=== PATIENT | female | born 1950 | race Caucasian/White ===

== ENCOUNTER → 2016-10-12 | Outpatient (CLI) | payer MEDICARE, MEDICAID ==
[~2016-10-12] MED LIST: B COMPLEX1 TA2 PO; CARDIZEM CD240 MG PO; CO Q-1050 MG PO; FISH OIL1000 MG PO; LORAZEPAM2 MG PO; MELOXICAM15 MG PO; MULTI VITAMINS1 TAB PO; NASONEX0.05 MG/AC NAS; OMEPRAZOLE20 M2 PO; PRAVACHOL80 MG PO; PREDNISONE50 MG PO; PREMARIN0.625 MG PO; REGLAN5 MG PO; SYNTHROID0.05 MG PO; VOLTAREN GEL1% T
[2016-10-12 12:40] LABS: ALBUMIN 3.5 gm/dl (3.1-4.5); PHOSPHOROUS 3.4 mg/dL (2.5-4.9); POTASSIUM 3.9 mmol/L (3.5-5.1)
[2016-10-12 13:37] LABS: FERRITIN 55.4 ng/mL (10.0-291.0); FOLIC ACID 6.54 ng/mL (>5.38)
== END | disposition home or self-care (01) ==
LOC: LAB 11:57
PROVIDERS: Internal Medicine
DX: N18.2 Chronic kidney disease, stage 2 (mild) (principal); D50.9 Iron deficiency anemia, unspecified

== ENCOUNTER → 2016-10-23 | Outpatient (CLI) | payer MEDICARE, MEDICAID | END | disposition home or self-care (01) | LOC: MAMMO 03:20 | DX: Z12.31 Encounter for screening mammogram for malignant neoplasm of breast (principal) ==

== ENCOUNTER → 2017-01-17 | Outpatient (CLI) | payer MEDICARE, MEDICAID | END | disposition home or self-care (01) | LOC: RAD 01:51 | DX: Z13.820 Encounter for screening for osteoporosis (principal); M85.88 Other specified disorders of bone density and structure, other site; N95.9 Unspecified menopausal and perimenopausal disorder ==

== ENCOUNTER → 2017-08-01 | Outpatient (CLI) | payer MEDICARE, MEDICAID | END | disposition home or self-care (01) | LOC: US 01:56 | DX: K76.0 Fatty (change of) liver, not elsewhere classified (principal); Z90.710 Acquired absence of both cervix and uterus ==

== ENCOUNTER → 2017-08-21 | Day surgery (SDC) | payer MEDICARE, MEDICAID ==
[~2017-08-21] VITALS: Ht 162.5 cm; Wt 81.6 kg
[~2017-08-21] MED LIST changes: +FOSAMAX70 M1 PO; +SYNTHROID,LEVO75 MCG PO; -SYNTHROID0.05 MG PO
--- NOTE | ~2017-08-21 | O ---
[place], [place] OPERATIVE NOTE NAME: NARINDER RAMOS UNIT #: [id number] ROOM: DOCTOR: FABI TANNER MD BIRTHDATE: [birth year] DOS: 08/21/2017 GASTROENDOSCOPIC REPORT INDICATIONS: A 67-year-old patient, who has presented with chief complaint of epigastric distress, persistent dyspepsia, undergoing investigation. PAST MEDICAL HISTORY: Associated with hyperlipidemia, hypertension, hypothyroidism, osteoporosis, on alendronate. PAST SURGICAL HISTORY: Hysterectomy, bladder and rectal surgery. ALLERGIES: ERYTHROMYCIN AND TERBINAFINE. FAMILY HISTORY: Noncontributory. SOCIAL HISTORY: Nonsmoker, nonalcohol consumer. The patient has been on Meloxicam daily. PROCEDURE: Today's procedure part of investigation is panendoscopy plus biopsy. PREMEDICATION: Versed and Diprivan. SCOPE: Olympus forward-viewing gastroscope Q10 video. REPORT: After putting the patient in left lateral position and application of lubricant to the scope, the scope was introduced; thereafter, under direct visualization, I advanced through the length of esophagus without difficulty. Distal esophageal ulcers, which are linear and ascending approximately 5 cm above the esophagogastric junction was photographed and hiatal hernia, which is about 3.5 cm was noticed. Gastric pouch was entered. Gastritis seen. Antral biopsy obtained. Duodenal bulb, second and third part within normal limits. The patient extubated, tolerated procedure well. IMPRESSION: Distal esophageal ulcer secondary to reflux, hiatal hernia, gastritis secondary to Meloxicam, all above. PLAN AND DISCUSSION: We are going to increase her Protonix to 40 mg daily and Gaviscon Extra Strength tablet 1 at bedtime, antireflux measures with elevation of the head of the bed 6-inch all time. Abstinence from solid food ingestion 5 hours prior to retiring and Reglan 5 mg a.c. dinner to enhance gastric emptying time. Follow up routinely with you in office, p.r.n. visit with us in [facility]. Thank you very much indeed for your kind referral. [place], [place] OPERATIVE NOTE NAME: NARINDER RAMOS UNIT #: [id number] ROOM: DOCTOR: JACOB TANNER MD BIRTHDATE: [birth year] FABI TANNER MD CM:BOOM:OPERATIVE NOTE 11 32 PAIGE TANNER MD 08/21/17 1233 interface
[2017-08-21 10:44] VITALS: BP 124/70
[2017-08-21 12:07] VITALS: BP 137/59
[2017-08-21 12:19] VITALS: BP 127/61
[2017-08-21 12:35] VITALS: BP 132/73
== END ==
LOC: SDC 08-16 12:30
DX: K29.50 Unspecified chronic gastritis without bleeding (principal); E78.5 Hyperlipidemia, unspecified; I10 Essential (primary) hypertension; E03.9 Hypothyroidism, unspecified; M81.0 Age-related osteoporosis without current pathological fracture; Z90.710 Acquired absence of both cervix and uterus; Z88.1 Allergy status to other antibiotic agents; K22.10 Ulcer of esophagus without bleeding; K21.9 Gastro-esophageal reflux disease without esophagitis; K44.9 Diaphragmatic hernia without obstruction or gangrene

== ENCOUNTER → 2017-10-31 | Outpatient (CLI) | payer MEDICARE, MEDICAID | END | disposition home or self-care (01) | LOC: MAMMO 01:25 | DX: Z12.31 Encounter for screening mammogram for malignant neoplasm of breast (principal) ==

== ENCOUNTER → 2018-01-30 | Outpatient (CLI) | payer MEDICARE, MEDICAID ==
[2018-01-30 15:25] LABS: ALBUMIN 3.7 gm/dl (3.1-4.5); CREATININE 1.2 mg/dL (0.55-1.02); PHOSPHOROUS 3.2 mg/dL (2.5-4.9); POTASSIUM 4.4 mmol/L (3.5-5.1)
== END | disposition home or self-care (01) ==
LOC: LAB 14:25
PROVIDERS: Internal Medicine
DX: N18.2 Chronic kidney disease, stage 2 (mild) (principal)

== ENCOUNTER → 2018-04-15 | Outpatient (CLI) | payer MEDICARE, MEDICAID ==
[2018-04-15 15:05] LABS: BASO # 0.2 10*3/uL (0.0-0.1); BASO % 1.5 % (0.0-1.0); EOS # 0.6 10*3/uL (0.0-0.4); EOS % 5.8 % (1.0-4.0); HEMATOCRIT 43.8 % (37.0-47.0); HEMOGLOBIN 14.2 g/dl (12.0-16.0); LYMPH % 27.5 % (27.0-41.0); MEAN CELL VOLUME 85.7 fl (81.0-99.0); MEAN CORPUSCULAR HGB 27.8 pg (27.0-31.0); MEAN CORPUSCULAR HGB CONC 32.4 g/dl (33.0-37.0); MEAN PLATELET VOLUME 10.3 fl (9.6-12.3); MONO # 0.9 10*3/uL (0.1-1.0); MONO % 8.6 % (3.0-9.0); NEUT # 6.1 10*3/uL (2.3-7.9); NEUT % 56.3 % (47.0-73.0); PLATELET COUNT AUTOMATED 500 10*3/uL (130-400); RED BLOOD COUNT 5.11 10*6/uL (4.10-5.10); RED CELL DISTRI WIDTH 16.6 % (0-14.5); WHITE BLOOD COUNT 10.8 10*3/uL (4.8-10.8)
[2018-04-15 15:31] LABS: ALBUMIN 3.6 gm/dl (3.1-4.5); CREATININE 1.11 mg/dL (0.55-1.02); PHOSPHOROUS 3.1 mg/dL (2.5-4.9); POTASSIUM 4.2 mmol/L (3.5-5.1)
== END | disposition home or self-care (01) ==
LOC: LAB 14:46
PROVIDERS: Internal Medicine
DX: I12.9 Hypertensive chronic kidney disease with stage 1 through stage 4 chronic kidney disease, or unspecified chronic kidney disease (principal); N18.2 Chronic kidney disease, stage 2 (mild); D50.9 Iron deficiency anemia, unspecified

== ENCOUNTER → 2018-06-23 | Outpatient (CLI) | payer MEDICARE, MEDICAID ==
[2018-06-23 13:57] LABS: ALBUMIN 3.6 gm/dl (3.1-4.5); BUN 19 mg/dl (7-24); CHLORIDE 102 mmol/L (98-107); CREATININE 1.07 mg/dL (0.55-1.02); PHOSPHOROUS 2.8 mg/dL (2.5-4.9); POTASSIUM 3.9 mmol/L (3.5-5.1); SODIUM 137 mmol/L (136-145)
== END | disposition home or self-care (01) ==
LOC: LAB 12:45
PROVIDERS: Internal Medicine
DX: N18.2 Chronic kidney disease, stage 2 (mild) (principal)

== ENCOUNTER → 2018-07-18 | Outpatient (CLI) | payer MEDICARE, MEDICAID ==
[2018-07-18 15:19] LABS: BASO # 0.2 10*3/uL (0.0-0.1); BASO % 1.3 % (0.0-1.0); EOS # 0.9 10*3/uL (0.0-0.4); EOS % 7.3 % (1.0-4.0); HEMATOCRIT 46.8 % (37.0-47.0); HEMOGLOBIN 14.8 g/dl (12.0-16.0); LYMPH # 2.9 10*3/uL (1.3-4.4); LYMPH % 22.9 % (27.0-41.0); MEAN CELL VOLUME 83.9 fl (81.0-99.0); MEAN CORPUSCULAR HGB 26.5 pg (27.0-31.0); MEAN CORPUSCULAR HGB CONC 31.6 g/dl (33.0-37.0); MEAN PLATELET VOLUME 10.4 fl (9.6-12.3); NEUT # 7.6 10*3/uL (2.3-7.9); NEUT % 60.1 % (47.0-73.0); PLATELET COUNT AUTOMATED 594 10*3/uL (130-400); RED BLOOD COUNT 5.58 10*6/uL (4.10-5.10); RED CELL DISTRI WIDTH 14.9 % (0-14.5); WHITE BLOOD COUNT 12.6 10*3/uL (4.8-10.8)
[2018-07-18 15:26] LABS: URINE CREATININE RANDOM 79.5 mg/dL
[2018-07-18 15:34] LABS: ALBUMIN 3.2 gm/dl (3.1-4.5); ALKALINE PHOSPHATASE 91 U/L (45-117); BUN 20 mg/dl (7-24); CHLORIDE 105 mmol/L (98-107); CHOLESTEROL 175 mg/dL (<200); CREATININE 1.19 mg/dL (0.55-1.02); HDL CHOLESTEROL 40 mg/dl (40-60); IRON 48 ug/dL (50-170); LDL CHOLESTEROL 103 mg/dL (9-159); POTASSIUM 4.3 mmol/L (3.5-5.1); SGOT/AST 21 IU/L (3-35); SGPT/ALT 18 U/L (12-78); SODIUM 139 mmol/L (136-145); TOTAL IRON BINDING CAPACITY 294 ug/dl (250-450); TOTAL PROTEIN 8.1 gm/dL (6.4-8.2); TRIGLYCERIDES 162 mg/dl (<150); VLDL CHOLESTEROL 32 mg/dL (6-40)
[2018-07-18 15:36] LABS: BILIRUBIN, DIRECT < 0.1 mg/dL (0.0-0.2)
[2018-07-18 15:47] LABS: BILIRUBIN NEGATIVE (NEGATIVE); BLOOD NEGATIVE (NEGATIVE); CLARITY SL CLOUDY (CLEAR); COLOR YELLOW (YELLOW); GLUCOSE NEGATIVE (NEGATIVE); KETONE NEGATIVE (NEGATIVE); LEUKO ESTERASE 3+ (NEGATIVE); NITRITE POSITIVE (NEGATIVE); UROBILINOGEN 0.2 E.U./dl (0.2-1.0)
[2018-07-18 16:06] LABS: BACTERIA 4+; WBC 51-100 wbc/hpf (0-5)
[2018-07-18 16:07] LABS: VITAMIN D, 25-HYDROXY 20.8 ng/mL (30-100)
[2018-07-18 16:08] LABS: FERRITIN 53.5 ng/mL (10.0-291.0); PTH INTACT 24.6 pg/mL (18.5-88.0)
== END | disposition home or self-care (01) ==
LOC: LAB 14:41
PROVIDERS: Internal Medicine; Internal Medicine Nephrology
DX: I12.9 Hypertensive chronic kidney disease with stage 1 through stage 4 chronic kidney disease, or unspecified chronic kidney disease (principal); N18.3 Chronic kidney disease, stage 3 (moderate); E78.5 Hyperlipidemia, unspecified; D50.9 Iron deficiency anemia, unspecified; D63.1 Anemia in chronic kidney disease; N25.81 Secondary hyperparathyroidism of renal origin

== ENCOUNTER → 2019-01-08 | Outpatient (CLI) | payer MEDICARE ==
[2019-01-08 16:08] LABS: BILIRUBIN NEGATIVE (NEGATIVE); BLOOD NEGATIVE (NEGATIVE); CLARITY CLEAR (CLEAR); COLOR YELLOW (YELLOW); GLUCOSE NEGATIVE (NEGATIVE); KETONE NEGATIVE (NEGATIVE); LEUKO ESTERASE 1+ (NEGATIVE); NITRITE NEGATIVE (NEGATIVE); SPECIFIC GRAVITY <= 1.005 (1.005-1.030); UROBILINOGEN 0.2 E.U./dl (0.2-1.0)
[2019-01-08 16:11] LABS: BASO # 0.2 10*3/uL (0.0-0.1); BASO % 1.4 % (0.0-1.0); EOS # 0.7 10*3/uL (0.0-0.4); EOS % 5.6 % (1.0-4.0); HEMATOCRIT 45.3 % (37.0-47.0); HEMOGLOBIN 14.2 g/dl (12.0-16.0); LYMPH # 3.9 10*3/uL (1.3-4.4); LYMPH % 33.9 % (27.0-41.0); MEAN CELL VOLUME 86.8 fl (81.0-99.0); MEAN CORPUSCULAR HGB 27.2 pg (27.0-31.0); MEAN CORPUSCULAR HGB CONC 31.3 g/dl (33.0-37.0); MEAN PLATELET VOLUME 10.9 fl (9.6-12.3); MONO % 8.2 % (3.0-9.0); NEUT # 5.9 10*3/uL (2.3-7.9); NEUT % 50.5 % (47.0-73.0); PLATELET COUNT AUTOMATED 518 10*3/uL (130-400); RED BLOOD COUNT 5.22 10*6/uL (4.10-5.10); WHITE BLOOD COUNT 11.6 10*3/uL (4.8-10.8)
[2019-01-08 16:15] LABS: URINE CREATININE RANDOM 23.3 mg/dL
[2019-01-08 16:16] LABS: BACTERIA 1+; WBC 21-30 wbc/hpf (0-5)
[2019-01-08 16:31] LABS: ALBUMIN 3.7 gm/dl (3.1-4.5); CREATININE 1.19 mg/dL (0.55-1.02); PHOSPHOROUS 3.5 mg/dL (2.5-4.9); POTASSIUM 4.1 mmol/L (3.5-5.1)
[2019-01-08 16:57] LABS: FERRITIN 19.7 ng/mL (10.0-291.0); PTH INTACT 36.6 pg/mL (18.5-88.0)
== END | disposition home or self-care (01) ==
LOC: LAB 15:20
PROVIDERS: Internal Medicine Nephrology
DX: I12.9 Hypertensive chronic kidney disease with stage 1 through stage 4 chronic kidney disease, or unspecified chronic kidney disease (principal); N18.3 Chronic kidney disease, stage 3 (moderate); D63.1 Anemia in chronic kidney disease; N25.81 Secondary hyperparathyroidism of renal origin; Z79.899 Other long term (current) drug therapy

== ENCOUNTER → 2019-06-17 | Outpatient (CLI) | payer MEDICARE ==
[2019-06-17 19:07] LABS: CREATININE 1.4 mg/dL (0.55-1.02); POTASSIUM 3.7 mmol/L (3.5-5.1)
== END | disposition home or self-care (01) ==
LOC: LAB 18:35
PROVIDERS: Internal Medicine Cardiovascular Disease
DX: R07.9 Chest pain, unspecified (principal); R06.02 Shortness of breath

== ENCOUNTER → 2019-12-31 | Outpatient (CLI) | payer MEDICARE | LOC: MAMMO 00:05 | DX: Z12.31 Encounter for screening mammogram for malignant neoplasm of breast (principal) ==

== ENCOUNTER → 2020-03-18 | Outpatient (CLI) | payer MEDICARE ==
[2020-03-18 16:16] LABS: BASO # 0.1 10*3/uL (0.0-0.1); BASO % 1.5 % (0.0-1.0); EOS # 0.6 10*3/uL (0.0-0.4); EOS % 5.7 % (1.0-4.0); HEMATOCRIT 44.6 % (37.0-47.0); LYMPH # 2.6 10*3/uL (1.3-4.4); LYMPH % 27.5 % (27.0-41.0); MEAN CELL VOLUME 84.3 fl (81.0-99.0); MEAN CORPUSCULAR HGB 26.3 pg (27.0-31.0); MEAN CORPUSCULAR HGB CONC 31.2 g/dl (33.0-37.0); MONO # 0.8 10*3/uL (0.1-1.0); MONO % 8.4 % (3.0-9.0); NEUT # 5.4 10*3/uL (2.3-7.9); NEUT % 56.7 % (47.0-73.0); PLATELET COUNT AUTOMATED 510 10*3/uL (130-400); RED BLOOD COUNT 5.29 10*6/uL (4.10-5.10); WHITE BLOOD COUNT 9.6 10*3/uL (4.8-10.8)
[2020-03-18 16:27] LABS: COLOR YELLOW (YELLOW)
[2020-03-18 16:28] LABS: BILIRUBIN NEGATIVE; BLOOD NEGATIVE (NEGATIVE); CLARITY CLEAR (CLEAR); GLUCOSE NEGATIVE; KETONE NEGATIVE; LEUKO ESTERASE NEGATIVE (NEGATIVE); NITRITE NEGATIVE (NEGATIVE); UROBILINOGEN 0.2 E.U./dl (0.2-1.0)
[2020-03-18 16:29] LABS: ALBUMIN 3.7 gm/dl (3.1-4.5); CREATININE 1.19 mg/dL (0.55-1.02); POTASSIUM 4.1 mmol/L (3.5-5.1)
[2020-03-18 16:33] LABS: RBC 0-2 rbc/hpf (0-2)
[2020-03-18 16:34] LABS: BACTERIA 2+
[2020-03-18 17:15] LABS: PTH INTACT 56.4 pg/mL (18.5-88.0); VITAMIN D, 25-HYDROXY 47.3 ng/mL (30-100)
== END | disposition home or self-care (01) ==
LOC: LAB 15:36
PROVIDERS: Internal Medicine Nephrology
DX: N18.3 Chronic kidney disease, stage 3 (moderate) (principal); N25.81 Secondary hyperparathyroidism of renal origin; E61.1 Iron deficiency; Z79.899 Other long term (current) drug therapy

== ENCOUNTER → 2020-09-29 | Outpatient (CLI) | payer MEDICARE | END | disposition home or self-care (01) | LOC: RAD 16:11 | PROVIDERS: ATTEND Family Medicine | DX: M26.603 Bilateral temporomandibular joint disorder, unspecified (principal) ==

== ENCOUNTER → 2020-11-14 | Outpatient (CLI) | payer MEDICARE | END | disposition home or self-care (01) | LOC: RAD 15:21 | PROVIDERS: ATTEND Internal Medicine | DX: J18.9 Pneumonia, unspecified organism (principal) ==

== ENCOUNTER → 2020-12-16 | Outpatient (CLI) | payer MEDICARE | END | disposition home or self-care (01) | LOC: CT 01:50 | PROVIDERS: ATTEND Internal Medicine | DX: J84.10 Pulmonary fibrosis, unspecified (principal); K44.9 Diaphragmatic hernia without obstruction or gangrene; I10 Essential (primary) hypertension ==

== ENCOUNTER → 2021-01-24 | Outpatient (CLI) | payer MEDICARE ==
[2021-01-24 17:06] LABS: BILIRUBIN Negative (Negative); BLOOD Trace-Lysed (Negative); CLARITY Clear (Clear); COLOR Yellow (Yellow); GLUCOSE Negative (Negative); KETONE Negative (Negative); LEUKO ESTERASE 3+ (Negative); NITRITE Negative (Negative); PH 5.5 (4.5-8.0); SPECIFIC GRAVITY <= 1.005 (1.001-1.030); UROBILINOGEN 0.2 E.U./dl (0.0-1.0)
[2021-01-24 17:23] LABS: BACTERIA TRACE; EPITHELIAL CELLS 0-2; RBC 16-20 rbc/hpf (0-2); WBC 51-100 wbc/hpf (0-5)
== END | disposition home or self-care (01) ==
LOC: LAB 16:25
PROVIDERS: ATTEND Internal Medicine Nephrology
DX: N39.0 Urinary tract infection, site not specified (principal)

== ENCOUNTER → 2021-03-09 | Outpatient (CLI) | payer MEDICARE | END | disposition home or self-care (01) | LOC: MAMMO 00:13 | PROVIDERS: ATTEND Internal Medicine | DX: Z12.31 Encounter for screening mammogram for malignant neoplasm of breast (principal); N39.0 Urinary tract infection, site not specified ==

== ENCOUNTER → 2021-05-01 | Outpatient (CLI) | payer MEDICARE ==
[2021-05-01 17:23] LABS: BASO # 0.2 10*3/uL (0.0-0.1); BASO % 1.4 % (0.0-1.0); EOS # 0.8 10*3/uL (0.0-0.4); EOS % 6.8 % (1.0-4.0); HEMATOCRIT 45.7 % (37.0-47.0); LYMPH # 3.4 10*3/uL (1.3-4.4); MEAN CELL VOLUME 81.2 fl (81.0-99.0); MEAN CORPUSCULAR HGB CONC 30.9 g/dl (33.0-37.0); MEAN PLATELET VOLUME 10.8 fl (9.6-12.3); MONO % 8.3 % (3.0-9.0); NEUT # 6.4 10*3/uL (2.3-7.9); NEUT % 54.2 % (47.0-73.0); PLATELET COUNT AUTOMATED 570 10*3/uL (130-400); RED BLOOD COUNT 5.63 10*6/uL (4.10-5.10); RED CELL DISTRI WIDTH 16.8 % (0-14.5); WHITE BLOOD COUNT 11.7 10*3/uL (4.8-10.8)
[2021-05-01 17:30] LABS: BILIRUBIN Negative (Negative); BLOOD Negative (Negative); CLARITY Clear (Clear); COLOR Yellow (Yellow); GLUCOSE Negative (Negative); KETONE Negative (Negative); LEUKO ESTERASE Negative (Negative); NITRITE Negative (Negative); PH 6.5 (4.5-8.0); UROBILINOGEN 0.2 E.U./dl (0.0-1.0)
[2021-05-01 17:35] LABS: EPITHELIAL CELLS 0-2; RBC 0-2 rbc/hpf (0-2); WBC 0-2 wbc/hpf (0-5)
[2021-05-01 17:36] LABS: BACTERIA TRACE
[2021-05-01 17:40] LABS: ALBUMIN 3.4 gm/dl (3.1-4.5); CREATININE 1.36 mg/dL (0.55-1.02); POTASSIUM 4.3 mmol/L (3.5-5.1)
[2021-05-01 17:43] LABS: URINE CREATININE RANDOM 40.2 mg/dL
[2021-05-01 17:44] LABS: ALBUMIN 3.4 gm/dl (3.1-4.5); THYROXINE (T4) TOTAL 9.4 ug/dl (4.8-13.9); TOTAL PROTEIN 8.1 gm/dL (6.4-8.2)
[2021-05-01 17:53] LABS: THYROID STIM HORMONE (HS) 4.75 uIU/ml (0.358-4.75)
[2021-05-01 19:53] LABS: FERRITIN 12.6 ng/mL (10.0-291.0); PTH INTACT 31.1 pg/mL (18.5-88.0); VITAMIN D, 25-HYDROXY 33.5 ng/mL (30-100)
== END | disposition home or self-care (01) ==
LOC: LAB 16:47
PROVIDERS: Internal Medicine; ATTEND Internal Medicine Nephrology
DX: I12.9 Hypertensive chronic kidney disease with stage 1 through stage 4 chronic kidney disease, or unspecified chronic kidney disease (principal); N18.30 Chronic kidney disease, stage 3 unspecified; E78.5 Hyperlipidemia, unspecified; E03.9 Hypothyroidism, unspecified; E61.1 Iron deficiency; N25.81 Secondary hyperparathyroidism of renal origin

== ENCOUNTER → 2021-10-05 | Outpatient (CLI) | payer MEDICARE ==
[2021-10-05 16:02] LABS: BASO # 0.2 10*3/uL (0.0-0.1); BASO % 1.4 % (0.0-1.0); EOS % 7.4 % (1.0-4.0); HEMATOCRIT 47.3 % (37.0-47.0); LYMPH # 3.5 10*3/uL (1.3-4.4); LYMPH % 26.4 % (27.0-41.0); MEAN CELL VOLUME 83.6 fl (81.0-99.0); MEAN CORPUSCULAR HGB 26.5 pg (27.0-31.0); MEAN CORPUSCULAR HGB CONC 31.7 g/dl (33.0-37.0); MEAN PLATELET VOLUME 10.3 fl (9.6-12.3); MONO # 1.1 10*3/uL (0.1-1.0); MONO % 8.5 % (3.0-9.0); NEUT # 7.4 10*3/uL (2.3-7.9); NEUT % 55.9 % (47.0-73.0); PLATELET COUNT AUTOMATED 616 10*3/uL (130-400); RED BLOOD COUNT 5.66 10*6/uL (4.10-5.10); RED CELL DISTRI WIDTH 15.9 % (0-14.5); WHITE BLOOD COUNT 13.3 10*3/uL (4.8-10.8)
[2021-10-05 16:18] LABS: ALKALINE PHOSPHATASE 83 U/L (45-117); SGOT/AST 17 IU/L (3-35); SGPT/ALT 18 U/L (12-78); TOTAL PROTEIN 8.3 gm/dL (6.4-8.2)
== END | disposition home or self-care (01) ==
LOC: LAB 15:46
PROVIDERS: ATTEND Internal Medicine Critical Care Medicine
DX: J84.113 Idiopathic non-specific interstitial pneumonitis (principal); J30.89 Other allergic rhinitis; Z68.29 Body mass index [BMI] 29.0-29.9, adult; R06.02 Shortness of breath

== ENCOUNTER → 2022-03-12 | Outpatient (CLI) | payer MEDICARE ==
[2022-03-12 15:23] LABS: BASO # 0.2 10*3/uL (0.0-0.1); BASO % 1.3 % (0.0-1.0); EOS # 0.6 10*3/uL (0.0-0.4); EOS % 4.9 % (1.0-4.0); HEMATOCRIT 46.9 % (37.0-47.0); LYMPH # 2.6 10*3/uL (1.3-4.4); LYMPH % 20.2 % (27.0-41.0); MEAN CELL VOLUME 82.3 fl (81.0-99.0); MEAN CORPUSCULAR HGB 25.8 pg (27.0-31.0); MEAN CORPUSCULAR HGB CONC 31.3 g/dl (33.0-37.0); MEAN PLATELET VOLUME 10.9 fl (9.6-12.3); MONO # 1.1 10*3/uL (0.1-1.0); MONO % 8.6 % (3.0-9.0); NEUT # 8.3 10*3/uL (2.3-7.9); NEUT % 64.8 % (47.0-73.0); PLATELET COUNT AUTOMATED 536 10*3/uL (130-400); RED CELL DISTRI WIDTH 19.2 % (0-14.5); WHITE BLOOD COUNT 12.9 10*3/uL (4.8-10.8)
[2022-03-12 15:40] LABS: TOTAL PROTEIN 8.1 gm/dL (6.4-8.2)
== END | disposition home or self-care (01) ==
LOC: LAB 01:25 → US 01:25
PROVIDERS: Internal Medicine Critical Care Medicine; ATTEND Obstetrics & Gynecology
DX: J84.113 Idiopathic non-specific interstitial pneumonitis (principal); J30.89 Other allergic rhinitis; Z79.899 Other long term (current) drug therapy

== ENCOUNTER → 2022-05-02 | Outpatient (CLI) | payer MEDICARE ==
[2022-05-02 12:53] LABS: BASO # 0.2 10*3/uL (0.0-0.1); BASO % 1.6 % (0.0-1.0); EOS # 0.8 10*3/uL (0.0-0.4); EOS % 6.5 % (1.0-4.0); HEMATOCRIT 47.4 % (37.0-47.0); LYMPH # 3.2 10*3/uL (1.3-4.4); LYMPH % 26.4 % (27.0-41.0); MEAN CELL VOLUME 83.2 fl (81.0-99.0); MEAN CORPUSCULAR HGB 25.8 pg (27.0-31.0); MEAN PLATELET VOLUME 10.6 fl (9.6-12.3); MONO # 1.1 10*3/uL (0.1-1.0); MONO % 8.9 % (3.0-9.0); NEUT # 6.9 10*3/uL (2.3-7.9); NEUT % 56.4 % (47.0-73.0); PLATELET COUNT AUTOMATED 559 10*3/uL (130-400); RED CELL DISTRI WIDTH 18.8 % (0-14.5); WHITE BLOOD COUNT 12.3 10*3/uL (4.8-10.8)
[2022-05-02 13:16] LABS: ALKALINE PHOSPHATASE 87 U/L (45-117); CREATININE 1.34 mg/dL (0.55-1.02); POTASSIUM 4.4 mmol/L (3.5-5.1); SGOT/AST 20 IU/L (3-35); SGPT/ALT 18 U/L (12-78); TOTAL PROTEIN 7.8 gm/dL (6.4-8.2)
[2022-05-02 13:32] LABS: FERRITIN 19.4 ng/mL (10.0-291.0); VITAMIN D, 25-HYDROXY 39.3 ng/mL (30-100)
[2022-05-02 17:40] LABS: BILIRUBIN Negative (Negative); BLOOD Negative (Negative); CLARITY Clear (Clear); COLOR Yellow (Yellow); GLUCOSE Negative (Negative); KETONE Negative (Negative); LEUKO ESTERASE Negative (Negative); NITRITE Negative (Negative); UROBILINOGEN 0.2 E.U./dl (0.0-1.0)
[2022-05-02 17:49] LABS: URINE CREATININE RANDOM 93.9 mg/dL
[2022-05-02 18:05] LABS: EPITHELIAL CELLS 0-2; RBC 0-2 rbc/hpf (0-2); WBC 0-2 wbc/hpf (0-5)
== END | disposition home or self-care (01) ==
LOC: LAB 12:24
PROVIDERS: Internal Medicine Critical Care Medicine; ATTEND Internal Medicine Nephrology
DX: N18.32 Chronic kidney disease, stage 3b (principal); N25.81 Secondary hyperparathyroidism of renal origin; E61.1 Iron deficiency; Z79.899 Other long term (current) drug therapy

== ENCOUNTER → 2022-08-21 | Outpatient (CLI) | payer MEDICARE | END | disposition home or self-care (01) | LOC: MAMMO 08-20 14:00 | PROVIDERS: ATTEND Internal Medicine | DX: Z12.31 Encounter for screening mammogram for malignant neoplasm of breast (principal) ==

== ENCOUNTER → 2023-05-14 | Outpatient (CLI) | payer MEDICARE ==
[2023-05-14 16:39] LABS: BASO # 0.2 10*3/uL (0.0-0.1); BASO % 1.5 % (0.0-1.0); EOS # 0.8 10*3/uL (0.0-0.4); EOS % 6.8 % (1.0-4.0); LYMPH # 3.2 10*3/uL (1.3-4.4); LYMPH % 26.1 % (27.0-41.0); MONO % 8.1 % (3.0-9.0); NEUT % 57.3 % (47.0-73.0); PLATELET COUNT AUTOMATED 663 10*3/uL (130-400); RED BLOOD COUNT 6.05 10*6/uL (4.10-5.10); RED CELL DISTRI WIDTH 19.4 % (0-14.5); WHITE BLOOD COUNT 12.2 10*3/uL (4.8-10.8)
[2023-05-14 16:41] LABS: BILIRUBIN Negative (Negative); BLOOD Negative (Negative); CLARITY Clear (Clear); COLOR Yellow (Yellow); GLUCOSE Negative (Negative); KETONE Negative (Negative); LEUKO ESTERASE Negative (Negative); NITRITE Negative (Negative); PH 5.5 (4.5-8.0); SPECIFIC GRAVITY 1.015 (1.001-1.030); UROBILINOGEN 0.2 E.U./dl (0.0-1.0)
[2023-05-14 16:50] LABS: URINE CREATININE RANDOM 76.15 mg/dL
[2023-05-14 16:58] LABS: BACTERIA TRACE; RBC 0-2 rbc/hpf (0-2); WBC 0-2 wbc/hpf (0-5)
[2023-05-14 17:05] LABS: ALKALINE PHOSPHATASE 95 U/L (46-116); POTASSIUM 4.1 mmol/L (3.4-5.1); TOTAL PROTEIN 7.9 gm/dL (6.0-8.0)
[2023-05-14 17:08] LABS: VITAMIN D, 25-HYDROXY 46.9 ng/mL (30-100)
[2023-05-14 17:11] LABS: SGPT/ALT < 7 U/L (10-49)
== END | disposition home or self-care (01) ==
LOC: LAB 16:01
PROVIDERS: Internal Medicine Critical Care Medicine; ATTEND Internal Medicine Nephrology
DX: N18.32 Chronic kidney disease, stage 3b (principal); J84.113 Idiopathic non-specific interstitial pneumonitis; J30.89 Other allergic rhinitis; R06.83 Snoring; N25.81 Secondary hyperparathyroidism of renal origin; E61.1 Iron deficiency; Z68.30 Body mass index [BMI] 30.0-30.9, adult; Z79.899 Other long term (current) drug therapy

== ENCOUNTER 2023-06-11 12:10 | Inpatient (IN) | payer MEDICARE ==
[~2023-06-11] VITALS: Ht 160 cm; Wt 76.7 kg
[2023-06-11 12:29] VITALS: BP 107/86
[2023-06-11 13:21] LABS: BASO # 0.1 10*3/uL (0.0-0.1); BASO % 0.6 % (0.0-1.0); HEMATOCRIT 47.9 % (37.0-47.0); LYMPH # 1.8 10*3/uL (1.3-4.4); LYMPH % 11.4 % (27.0-41.0); MEAN CELL VOLUME 80.5 fl (81.0-99.0); MEAN CORPUSCULAR HGB 26.1 pg (27.0-31.0); MEAN CORPUSCULAR HGB CONC 32.4 g/dl (33.0-37.0); MEAN PLATELET VOLUME 10.4 fl (9.6-12.3); MONO # 1.3 10*3/uL (0.1-1.0); MONO % 7.9 % (3.0-9.0); NEUT # 12.7 10*3/uL (2.3-7.9); NEUT % 79.3 % (47.0-73.0); PLATELET COUNT AUTOMATED 440 10*3/uL (130-400); RED BLOOD COUNT 5.95 10*6/uL (4.10-5.10); RED CELL DISTRI WIDTH 21.4 % (0-14.5)
[2023-06-11 13:32] LABS: ACT PARTIAL THROMBO TIME 45.4 SECONDS (20.0-32.1)
[2023-06-11] MEDS ORDERED: KAPSPARGO SPRIN50 MG PO (13:43)
[2023-06-11] MEDS ORDERED: ELIQUIS5 M1 PO (13:43)
[2023-06-11] MEDS ORDERED: MIRTAZAPINE7.5 MG PO (13:44)
[2023-06-11] MEDS ORDERED: HYDREA500 M1 PO (13:44)
[2023-06-11] MEDS ORDERED: NORVASC2.5 MG PO (13:44)
[2023-06-11] MEDS ORDERED: VENT7GM INH (13:44)
[2023-06-11 13:56] LABS: POTASSIUM 3.6 mmol/L (3.4-5.1); TOTAL PROTEIN 8.1 gm/dL (6.0-8.0)
[2023-06-11 14:18] LABS: BILIRUBIN Negative (Negative); BLOOD 3+ (Negative); CLARITY Cloudy (Clear); COLOR Yellow (Yellow); GLUCOSE Negative (Negative); KETONE Negative (Negative); LEUKO ESTERASE Negative (Negative); NITRITE Negative (Negative); PH 5.5 (4.5-8.0); SPECIFIC GRAVITY 1.015 (1.001-1.030); UROBILINOGEN 0.2 E.U./dl (0.0-1.0)
[2023-06-11 14:38] LABS: BACTERIA 2+; EPITHELIAL CELLS 0-2; RBC 31-40 rbc/hpf (0-2)
[2023-06-11] MEDS ORDERED: OMEPRAZOLE MAGN20 MG PO (14:52)
[2023-06-11] MEDS ORDERED: LEVOXYL75 MCG PO (14:52)
[2023-06-11 16:10] VITALS: BP 100/50
[2023-06-11 17:00] VITALS: BP 114/64
[2023-06-11] MEDS ORDERED: METOPROLOL SUCC50 M1 PO (18:19)
[2023-06-11] MEDS ORDERED: PRAVASTATIN SOD80 MG PO (18:22)
[2023-06-11] MEDS ORDERED: METOCLOPRAMIDE5 MG PO (18:22)
[2023-06-11 20:00] VITALS: BP 107/65
[2023-06-12] VITALS: BP 176/73
[2023-06-12 04:00] VITALS: BP 139/59
[2023-06-12 06:40] LABS: BASO # 0.1 10*3/uL (0.0-0.1); BASO % 0.3 % (0.0-1.0); HEMATOCRIT 43.6 % (37.0-47.0); LYMPH # 1.4 10*3/uL (1.3-4.4); MEAN CELL VOLUME 79.7 fl (81.0-99.0); MEAN CORPUSCULAR HGB 26.1 pg (27.0-31.0); MEAN CORPUSCULAR HGB CONC 32.8 g/dl (33.0-37.0); MEAN PLATELET VOLUME 10.6 fl (9.6-12.3); MONO # 0.7 10*3/uL (0.1-1.0); MONO % 4.5 % (3.0-9.0); NEUT # 12.1 10*3/uL (2.3-7.9); NEUT % 84.4 % (47.0-73.0); PLATELET COUNT AUTOMATED 346 10*3/uL (130-400); RED BLOOD COUNT 5.47 10*6/uL (4.10-5.10); WHITE BLOOD COUNT 14.4 10*3/uL (4.8-10.8)
[2023-06-12 07:08] LABS: FREE T4 1.06 ng/dl (0.89-1.76); POTASSIUM 3.2 mmol/L (3.4-5.1); TOTAL PROTEIN 6.9 gm/dL (6.0-8.0)
[2023-06-12 07:30] VITALS: BP 128/72
[2023-06-12 12:00] VITALS: BP 108/59
[2023-06-12 16:00] VITALS: BP 100/52
[2023-06-12 20:00] VITALS: BP 122/71
[2023-06-13] VITALS (7 sets, daily range): BP systolic 121–1128; BP diastolic 59–83
[2023-06-13 06:51] LABS: BASO # 0.1 10*3/uL (0.0-0.1); BASO % 0.5 % (0.0-1.0); EOS # 0.3 10*3/uL (0.0-0.4); EOS % 2.4 % (1.0-4.0); HEMATOCRIT 44.1 % (37.0-47.0); LYMPH % 23.8 % (27.0-41.0); MEAN CELL VOLUME 81.4 fl (81.0-99.0); MEAN CORPUSCULAR HGB 26.2 pg (27.0-31.0); MEAN CORPUSCULAR HGB CONC 32.2 g/dl (33.0-37.0); MEAN PLATELET VOLUME 10.8 fl (9.6-12.3); MONO # 0.8 10*3/uL (0.1-1.0); MONO % 6.2 % (3.0-9.0); NEUT # 8.4 10*3/uL (2.3-7.9); NEUT % 66.2 % (47.0-73.0); PLATELET COUNT AUTOMATED 368 10*3/uL (130-400); RED BLOOD COUNT 5.42 10*6/uL (4.10-5.10); RED CELL DISTRI WIDTH 22.1 % (0-14.5); WHITE BLOOD COUNT 12.8 10*3/uL (4.8-10.8)
[2023-06-13 07:33] LABS: POTASSIUM 3.5 mmol/L (3.4-5.1); TOTAL PROTEIN 6.9 gm/dL (6.0-8.0)
[2023-06-13 12:33] LABS: POTASSIUM 3.6 mmol/L (3.4-5.1)
[2023-06-14] VITALS (8 sets, daily range): BP systolic 115–170; BP diastolic 61–112
[2023-06-14 06:12] LABS: POTASSIUM 4.1 mmol/L (3.4-5.1)
[2023-06-14 09:22] LABS: BASO # 0.1 10*3/uL (0.0-0.1); BASO % 0.9 % (0.0-1.0); EOS # 0.5 10*3/uL (0.0-0.4); EOS % 4.4 % (1.0-4.0); HEMATOCRIT 42.7 % (37.0-47.0); LYMPH # 3.1 10*3/uL (1.3-4.4); LYMPH % 25.9 % (27.0-41.0); MEAN CELL VOLUME 80.9 fl (81.0-99.0); MEAN CORPUSCULAR HGB 26.7 pg (27.0-31.0); MEAN PLATELET VOLUME 10.7 fl (9.6-12.3); MONO # 1.1 10*3/uL (0.1-1.0); MONO % 9.3 % (3.0-9.0); NEUT % 58.7 % (47.0-73.0); PLATELET COUNT AUTOMATED 363 10*3/uL (130-400); RED BLOOD COUNT 5.28 10*6/uL (4.10-5.10); RED CELL DISTRI WIDTH 21.5 % (0-14.5)
[2023-06-14 23:15] LABS: HEMATOCRIT 46.1 % (37.0-47.0); MEAN CELL VOLUME 79.9 fl (81.0-99.0); MEAN CORPUSCULAR HGB CONC 32.5 g/dl (33.0-37.0); MEAN PLATELET VOLUME 10.8 fl (9.6-12.3); NUCLEATED RED BLOOD CELL 0.3 % (0.0-0.0); PLATELET COUNT AUTOMATED 302 10*3/uL (130-400); RED BLOOD COUNT 5.77 10*6/uL (4.10-5.10); RED CELL DISTRI WIDTH 21.6 % (0-14.5)
[2023-06-14 23:20] LABS: MANUAL DIFF REFLEX YES
[2023-06-14 23:38] LABS: TOTAL PROTEIN 7.5 gm/dL (6.0-8.0)
[2023-06-14 23:47] LABS: ACANTHOCYTES FEW; BURR CELLS FEW; PLATELET SUFFICIENCY NORMAL (NORMAL); TOTAL CELLS COUNTED 100 #CELLS
[2023-06-14 23:50] LABS: POTASSIUM 2.8 mmol/L (3.4-5.1)
[2023-06-15] VITALS (15 sets, daily range): BP systolic 13–130; BP diastolic 7–86
[2023-06-15] MEDS ORDERED: LORAZEPAM2 MG PO (03:54)
[2023-06-16] VITALS (10 sets, daily range): BP systolic 124–149; BP diastolic 49–87
[2023-06-16 08:44] LABS: HEMATOCRIT 44.3 % (37.0-47.0); MEAN CELL VOLUME 82.5 fl (81.0-99.0); MEAN CORPUSCULAR HGB 26.3 pg (27.0-31.0); MEAN CORPUSCULAR HGB CONC 31.8 g/dl (33.0-37.0); MEAN PLATELET VOLUME 11.1 fl (9.6-12.3); RED BLOOD COUNT 5.37 10*6/uL (4.10-5.10); RED CELL DISTRI WIDTH 21.6 % (0-14.5); WHITE BLOOD COUNT 18.8 10*3/uL (4.8-10.8)
[2023-06-16 08:46] LABS: MANUAL DIFF REFLEX YES
[2023-06-16 08:47] LABS: PLATELET COUNT AUTOMATED 444 10*3/uL (130-400)
[2023-06-16 08:58] LABS: BASOPHILS 1 % (0-1); BURR CELLS MODERATE; OVALOCYTES FEW; PLATELET SUFFICIENCY HIGH (NORMAL); POLYCHROMASIA SLIGHT; SCHISTOCYTES FEW; TARGET CELLS FEW; TOTAL CELLS COUNTED 100 #CELLS
[2023-06-16 08:59] LABS: POTASSIUM 3.9 mmol/L (3.4-5.1); TOTAL PROTEIN 7.1 gm/dL (6.0-8.0)
[2023-06-17] VITALS: BP 107/47
[2023-06-17 06:12] LABS: HEMATOCRIT 44.4 % (37.0-47.0); MEAN CELL VOLUME 80.6 fl (81.0-99.0); MEAN CORPUSCULAR HGB CONC 32.2 g/dl (33.0-37.0); MEAN PLATELET VOLUME 11.4 fl (9.6-12.3); PLATELET COUNT AUTOMATED 493 10*3/uL (130-400); RED BLOOD COUNT 5.51 10*6/uL (4.10-5.10); RED CELL DISTRI WIDTH 21.1 % (0-14.5)
[2023-06-17 06:13] LABS: MANUAL DIFF REFLEX YES
[2023-06-17 06:19] LABS: POTASSIUM 3.6 mmol/L (3.4-5.1)
[2023-06-17 06:53] LABS: BASOPHILS 1 % (0-1); TOTAL CELLS COUNTED 100 #CELLS
[2023-06-17 06:54] LABS: BURR CELLS MODERATE; PLATELET SUFFICIENCY HIGH (NORMAL); POLYCHROMASIA SLIGHT; ROULEAUX SLIGHT
[2023-06-17 06:55] LABS: MICROCYTOSIS SLIGHT
[2023-06-17 08:00] VITALS: BP 139/75
[2023-06-17 12:00] VITALS: BP 127/72
[2023-06-17] MEDS ORDERED: PACERONE200 MG PO (13:14)
[2023-06-17] MEDS ORDERED: FUROSEMIDE20 M1 PO (13:14)
[2023-06-17] MEDS ORDERED: DILTIAZEM HCL120 M2 PO (13:14)
[2023-06-17] MEDS ORDERED: LEVOFLOXACIN750 M2 PO (13:16)
== END 2023-06-17 19:18 | disposition home or self-care (01) | DRG 871 ==
LOC: ED 12:10 → EDHOLD 16:08 → 4E 16:08
PROVIDERS: Internal Medicine; Nurse Practitioner Family; Physician Assistant Medical; Student in an Organized Health Care Education/Training Program; ADMIT Family Medicine; ATTEND Family Medicine
DX: A41.9 Sepsis, unspecified organism (principal); J18.9 Pneumonia, unspecified organism; N17.0 Acute kidney failure with tubular necrosis; N39.0 Urinary tract infection, site not specified; E87.20 Acidosis, unspecified; E44.0 Moderate protein-calorie malnutrition; R65.20 Severe sepsis without septic shock; T79.6XXA Traumatic ischemia of muscle, initial encounter; E86.0 Dehydration; D75.839 Thrombocytosis, unspecified; X58.XXXA Exposure to other specified factors, initial encounter; R73.9 Hyperglycemia, unspecified; E83.39 Other disorders of phosphorus metabolism; I48.91 Unspecified atrial fibrillation; E03.9 Hypothyroidism, unspecified; K21.9 Gastro-esophageal reflux disease without esophagitis; J84.10 Pulmonary fibrosis, unspecified; I12.9 Hypertensive chronic kidney disease with stage 1 through stage 4 chronic kidney disease, or unspecified chronic kidney disease; N18.30 Chronic kidney disease, stage 3 unspecified; Z88.1 Allergy status to other antibiotic agents; Y93.89 Activity, other specified; Y92.89 Other specified places as the place of occurrence of the external cause; Y99.8 Other external cause status; Z68.30 Body mass index [BMI] 30.0-30.9, adult